=== PATIENT | female | born 2000 | race Caucasian/White ===

== ENCOUNTER 2024-07-18 18:38 | Emergency (ER) | payer OTHER, SELFPAY ==
[2024-07-18 18:39] VITALS: BP 130/76; PULSE 89; RESP 16; TEMP 36.6; O2SAT 97; BMI 36.3
--- NOTE | 2024-07-18 19:15 | ED_ITS ---
Discharge Plan Disposition Patient Disposition: Home, Self-Care Condition: Good Prescriptions Prescriptions: New phenazopyridine [Pyridium] 200 mg tablet 200 mg PO Q8H 2 Days Qty: 6 0RF ondansetron 4 mg Tablet,Disintegrating 4 mg PO Q8H PRN (Reason: Nausea) Qty: 12 0RF nitrofurantoin monohyd/m-cryst [Macrobid] 100 mg Capsule 100 mg PO BID Qty: 10 0RF Rx Instructions: must administer with a meal/food Referrals Follow up/Referrals: Provider,Referral, MD [Primary Care Provider] - See instructions Activity Restrictions/Add. Instructions Additional Instructions/Restrictions: Drink plenty of fluids. Take tylenol or ibuprofen for pain or fever. Take the medications as directed. Follow up with your regular doctor. GO TO THE ER FOR ANY WORSENING SYMPTOMS The pyridium will make your urine turn orange, this is an expected side effect. It will stain your clothes if it comes into contact with them. We will culture the urine. That will tell what bacteria is causing your infection and which antibiotics will treat it best.This test takes 3 days to complete. Clinical Impressions Clinical Impression: UTI (urinary tract infection) Instructions Patient Instructions: Urinary Tract Infection, Urine Culture, DI for Urinary Tract Infection (UTI), Phenazopyridine, Nitrofurantoin Print Language Print Language: Belarusian Discharge ED Provider: Pierce Templeton [facility] [place] HPI General Stated complaint: Fever,burning,painful urination Time Seen by Provider: 07/18/24 19:14 Related Data Previous Rx's ?Medication ?Instructions ?Recorded nitrofurantoin 100 mg PO BID #10 caps 07/18/24 monohydrate/macrocrystals 100 mg capsule (Macrobid) ondansetron 4 mg disintegrating 4 mg PO Q8H PRN Nausea #12 tabs 07/18/24 tablet phenazopyridine 200 mg tablet 200 mg PO Q8H 2 days #6 tabs 07/18/24 (Pyridium) Allergies Allergy/AdvReac Type Severity Reaction Status Date / Time No Known Allergies Allergy Verified 07/18/24 19:17 [facility] Disclaimer: The information contained in this section may have been updated after the patient was seen, as this information can be updated by other users. Social History Smoking Status: Never smoker alcohol intake: never current occupational status: employed Travel in the last 8 weeks: None ROS Obtained: Yes All systems reviewed & no additional complaints except as documented Constitutional Constitutional: Reports system reviewed and no additional complaints, except as documented, Denies chills and Denies fever(s) Eyes Eyes: Denies eye discharge ENT Ears, Nose, Mouth, and Throat: Denies dysphagia, Denies sore throat and Denies throat swelling Cardiovascular Cardiovascular: Denies chest pain and Denies dyspnea Respiratory Respiratory: Denies chest congestion, Denies cough and Denies dyspnea Gastrointestinal Gastrointestingal: Denies abdominal pain, constipation, diarrhea, dysphagia, nausea or vomiting Genitourinary Female Genitourinary: Reports as per HPI, Reports dysuria, Reports urinary frequency, Denies urinary incontinence, Reports urinary hesitancy and Reports urinary urgency Musculoskeletal Musculoskeletal: Denies arthralgias and Reports back pain Integumentary/Breasts Skin/Breast: Denies rash Neurologic Neurologic: Denies paresthesias Allergic/Immunologic Allergic/Immunologic: Denies throat swelling Physical Exam General General appearance: alert and in no apparent distress Head Head exam: atraumatic and normocephalic Eye Eye exam: Present normal appearance, PERRL and EOMI ENT ENT exam: Present normal exam, mucous membranes moist, TM's normal bilaterally and normal external ear exam Neck Neck exam: Present normal inspection, full ROM and trachea midline; Absent tenderness, meningismus or lymphadenopathy Chest Chest inspection: Present normal inspection and symmetric chest wall rise; Absent tenderness Respiratory Respiratory exam: Present normal lung sounds bilaterally; Absent respiratory distress, wheezes or stridor Cardiovascular Cardiovascular exam: Present regular rate, normal rhythm and normal heart sounds Abdominal Exam Abdominal exam: Present soft and normal bowel sounds; Absent distention, tenderness, guarding, rebound, rigidity, incision, psoas sign, obturator sign, heel tap sign, Espinosa's sign, Rovsing's sign or tenderness at McBurney's Point Extremities Exam Extremities exam: Present normal inspection, full ROM and normal capillary refill; Absent tenderness, edema, joint swelling, calf tenderness or cyanosis Back Exam Back exam: Present normal inspection and full ROM; Absent tenderness, CVA tenderness (R) or CVA tenderness (L) Neurological Exam Neurological exam: Present alert, oriented X3 and normal gait Psychiatric Psychiatric exam: Present normal affect and normal mood Skin Skin exam: Present warm, dry, intact and normal color Lymphatic Lymphatic Findings: no adenopathy Medical Decision Making Medical Records Medical records reviewed: No I reviewed the patient's medical records. Screening: Per USPSTF and CDC recommendations, given the prevalence of disease in our region, it is our hospital?s policy to screen for HIV and viral Hepatitis for all patients aged 18 and over and those with ongoing risk factors. Yossi Inquiry Pt receiving controlled substance: No Lab Data Lab results reviewed: Yes I reviewed the patient's lab results.
[2024-07-18 19:19] LABS: Microscopic, Urine URINE MICROSCOPIC (MICROSCOPIC)
[2024-07-18 19:21] LABS: UTC Pregnancy Test, Urine Negative (Negative)
[2024-07-18 19:23] LABS: Appearance,Urine CLEAR (Clear); Bilirubin,Urine Negative (Negative); Blood, Urine TRACE-I (Negative); Color,Urine YELLOW (Yellow); Glucose,Urine (UA) Negative (Negative); Ketones,Urine Negative (Negative); Leukocyte Esterase,Urine 1+ (Negative); Nitrate,Urine Negative (Negative); Protein,Urine Negative (Negative); Urobilinogen,Urine 0.2 EU/dl (0.2)
[2024-07-18 19:35] VITALS: BP 130/76; PULSE 89; RESP 18; TEMP 36.6; O2SAT 97
[2024-07-18 19:36] LABS: Bacteria,Urine 3+ /lpf; Mucus,Urine 1+ /lpf; WBC,Urine 50-100 #/hpf (0-3)
--- NOTE | 2024-07-22 13:28 | PC.NURSE ---
PATIENT'S URINE CULTURE REVIEWED BY Jovani CASTILLO APRN. PATIENT SENT IN KEFLEX. PATIENT NOTIFIED AT THIS TIME TO STOP CURRENT ANTIBIOTIC AND START KEFLEX. PATIENT ADVISED TO FOLLOW-UP WITH PCP IF SYMPTOMS PERSIST. PATIENT VERBALIZED UNDERSTANDING.
--- NOTE | 2024-07-22 13:30 | PC.NURSE ---
SPOKE WITH PATIENT ABOUT WOUND CULTURE RESULTS. ADVISED PATIENT CLINDAMYCIN WAS SENT IN AND SHE SHOULD STOP BOTH CURRENT ORAL ANTIBIOTICS AND START CLINDAMYCIN. ADVISED PATIENT TO CONTINUE USING MUPRIOCIN OINTMENT AND FOLLOW-UP WITH PCP. PATIENT VERBALIZED UNDERSTANDING
== END 2024-07-18 19:37 | disposition home or self-care (01) ==
PROVIDERS: Emergency Provider Nurse Practitioner Family
DX: N39.0 Urinary tract infection, site not specified (principal); R30.9 Painful micturition, unspecified; R50.9 Fever, unspecified
CPT/HCPCS: 81001; 81025; 87086; 87088; 87186; 99212; G0381

== ENCOUNTER 2024-08-06 09:16 | Emergency (ER) | payer OTHER, SELFPAY ==
[2024-08-06 10:31] VITALS: BP 123/78; PULSE 76; RESP 18; TEMP 36.9; O2SAT 98; BMI 36.1
--- NOTE | 2024-08-06 10:34 | EXP.UTC ---
Discharge Plan Disposition Patient Disposition: Home, Self-Care Condition: Good Prescriptions Prescriptions: New ibuprofen [IBU] 800 mg tablet 800 mg PO Q8HP PRN (Reason: Moderate Pain) Qty: 30 0RF Referrals Follow up/Referrals: Milad Clements DO [Primary Care Provider] - See instructions Activity Restrictions/Add. Instructions Additional Instructions/Restrictions: Go home and rest. It would be best if you rested tomorrow too. Take the oral medications as directed. Follow up with your regular doctor. GO TO THE ER FOR ANY WORSENING SYMPTOMS OR CONCERN Clinical Impressions Clinical Impression: Headache, migraine Stand Alone Forms Stand Alone Forms: Work/School Release Instructions Patient Instructions: Migraine -- Adult, Ketorolac Injection, Dexamethasone Injection Print Language Print Language: Korean Discharge ED Provider: Pierce Templeton [facility] General Stated complaint: knot back of head, migraine Mode of Arrival: Ambulatory Source of Information: Patient Time Seen by Provider: 08/06/24 10:34 Description of Symptoms (Recalled from Triage Doc. by RN): LEFT BACK OF HEAD MUSCLE KNOT? STATES PAIN AND CAUSING MIGRAINES HEENT Symptoms (Recalled from RN notes): Yes Resp Symptoms (Recalled from RN notes): No Skin Symptoms (Recalled from RN notes): No MS Symptoms (Recalled from RN notes): Yes Functional Status (Recalled from RN notes): WNL Related Data Previous Rx's ?Medication ?Instructions ?Recorded ibuprofen 800 mg tablet (IBU) 800 mg PO Q8HP PRN Moderate Pain 08/06/24 #30 tabs Allergies Allergy/AdvReac Type Severity Reaction Status Date / Time No Known Allergies Allergy Verified 07/18/24 19:17 Worker's Comp Is this a Worker's Comp case?: No [facility] Disclaimer: The information contained in this section may have been updated after the patient was seen, as this information can be updated by other users. Social History (Updated 07/19/24 @ 08:26 by Pierce Templeton APRN) Smoking Status: Never smoker alcohol intake: never current occupational status: employed Travel in the last 8 weeks: None ROS Obtained: Yes All systems reviewed & no additional complaints except as documented Constitutional Constitutional: Denies chills and Denies fever(s) Eyes Eyes: Denies eye discharge ENT Ears, Nose, Mouth, and Throat: Denies dizziness, Denies otalgia and Denies sore throat Cardiovascular Cardiovascular: Denies chest pain Respiratory Respiratory: Denies shortness of breath, Denies chest congestion, Denies cough, Denies stridor and Denies wheezing Gastrointestinal Gastrointestingal: Denies nausea or vomiting Musculoskeletal Musculoskeletal: Reports system reviewed and no additional complaints, except as documented and Denies arthralgias Integumentary/Breasts Skin/Breast: Denies rash Neurologic Neurologic: Denies dizziness and Denies paresthesias Allergic/Immunologic Allergic/Immunologic: Denies wheezing Physical Exam General General appearance: alert and in no apparent distress Head Head exam: atraumatic, normocephalic and normal inspection Eye Eye exam: Present normal appearance, PERRL and EOMI ENT ENT exam: Present normal exam, normal oropharynx, mucous membranes moist, TM's normal bilaterally and normal external ear exam Neck Neck exam: Present normal inspection, full ROM and trachea midline; Absent meningismus or lymphadenopathy Chest Chest inspection: Present normal inspection and symmetric chest wall rise; Absent tenderness Respiratory Respiratory exam: Present normal lung sounds bilaterally; Absent respiratory distress Cardiovascular Cardiovascular exam: Present regular rate and normal rhythm; Absent JVD Abdominal Exam Abdominal exam: Present soft and normal bowel sounds; Absent distention, tenderness or guarding Extremities Exam Extremities exam: Present normal inspection, full ROM and normal capillary refill; Absent calf tenderness Back Exam Back exam: Present normal inspection; Absent tenderness Neurological Exam Neurological exam: Present alert and oriented X3 Psychiatric Psychiatric exam: Present normal affect and normal mood Skin Skin exam: Present warm, dry, intact and normal color Lymphatic Lymphatic Findings: no adenopathy Medical Decision Making Medical Records Medical records reviewed: No I reviewed the patient's medical records. Screening: Per USPSTF and CDC recommendations, given the prevalence of disease in our region, it is our hospital?s policy to screen for HIV and viral Hepatitis for all patients aged 18 and over and those with ongoing risk factors. Yossi Inquiry Pt receiving controlled substance: No Vital Signs: 08/06/24 10:31 Temperature 98.4 F Temperature Source Oral Pulse Rate [Left Radial] 76 Respiratory Rate 18 Blood Pressure [Left Arm] 123/78 Blood Pressure Mean [Left Arm] 93 02 Sat by Pulse Oximetry 98
[2024-08-06] MEDS: DEXAMETHASONE 4MG/ML 1ML VIAL 8 MG IM (10:48)
[2024-08-06] MEDS: KETOROLAC 60MG/2ML VIAL 60 MG IM (10:48)
[2024-08-06 11:36] VITALS: BP 123/78; PULSE 76; RESP 18; TEMP 36.9
== END 2024-08-06 11:38 | disposition home or self-care (01) ==
PROVIDERS: Emergency Provider Nurse Practitioner Family; PCP Internal Medicine
DX: G43.909 Migraine, unspecified, not intractable, without status migrainosus (principal)
CPT/HCPCS: 96372; 99213; G0381; J1100; J1885

== ENCOUNTER 2024-08-09 17:11 | Emergency (ER) | payer OTHER, SELFPAY ==
[2024-08-09 17:12] VITALS: BP 145/74; PULSE 69; RESP 20; TEMP 36.8; O2SAT 97; BMI 35.9
[2024-08-09] MEDS: LIDOCAINE 5% TRANSDERMAL PATCH 1 EACH TP (17:37)
[2024-08-09] MEDS: ONDANSETRON 4MG ODT 4 MG SL (17:37)
--- NOTE | 2024-08-09 17:42 | HMH.EDGENADL ---
Discharge Plan Prescriptions Prescriptions: New lidocaine 5 % adhesive patch,medicated 1 patch topical DAILY Qty: 30 0RF Rx Instructions: leave on most painful area for up to 12 hrs ondansetron 4 mg tablet,disintegrating 4 mg PO Q6H PRN (Reason: nausea and vomiting) Qty: 10 0RF No Action ibuprofen [IBU] 800 mg tablet 800 mg PO Q8HP PRN (Reason: Moderate Pain) Qty: 30 0RF Referrals Follow up/Referrals: Milad Clements DO [Primary Care Provider] - See instructions Activity Restrictions/Add. Instructions Additional Instructions/Restrictions: Call your family doctor to establish care for this visit to the emergency department and schedule follow-up within 48 hours to ensure improvement. If you have any worsening of your condition or any other concerning signs or symptoms, return to the emergency department or your primary care doctor for further evaluation. Lidocaine patch once daily. Clinical Impressions Clinical Impression: Muscle tightness Instructions Patient Instructions: DI for Neck Pain Print Language Print Language: Occitan Discharge ED Provider: Kingsley Hatfield General Adult HPI General Chief complaint: Neck Pain/Injury Stated complaint: knot on neck,tingling LT side face to feet Time Seen by Provider: 08/09/24 17:17 Mode of Arrival: Ambulatory Source of Information: Patient Limitations: No Limitations Description of Symptoms (Recalled from ER Triage Doc. by RN): pt is here for pain in neck muscle back of head that has been going on for two years, pt was given a muscle relaxer on monday and has been having intermittent nausea since then History of Present Illness HPI narrative: Please note that above description of symptoms, in this electronic medical record under categorization of recalled from ER triage doctor by RN are reflective of an initial nursing assessment, however, is not reflective of my full history and physical exam that was personally taken and clarified. Consequentially, this preceding description of symptoms, which may include the patient's categorized chief complaint in the EMR, do not reflect my personal clinical impression, and the ultimate description of history of present illness and patient stated complaints should be deferred to this section of the note. Unless stated otherwise or congruent with this section of the note, additional signs, symptoms, or incongruence should be interpreted as inaccurate with my clinical impression. Related Data Previous Rx's ?Medication ?Instructions ?Recorded ibuprofen 800 mg tablet (IBU) 800 mg PO Q8HP PRN Moderate Pain 08/06/24 #30 tabs lidocaine 5 % topical patch 1 patch topical DAILY #30 ea 08/09/24 ondansetron 4 mg disintegrating 4 mg PO Q6H PRN nausea and 08/09/24 tablet vomiting #10 tabs Allergies Allergy/AdvReac Type Severity Reaction Status Date / Time No Known Allergies Allergy Verified 07/18/24 19:17 [facility] Disclaimer: The information contained in this section may have been updated after the patient was seen, as this information can be updated by other users. Social History (Updated 07/19/24 @ 08:26 by Pierce Templeton APRN) Smoking Status: Never smoker alcohol intake: never current occupational status: employed Travel in the last 8 weeks: None ROS Obtained: Yes All systems reviewed & no additional complaints except as documented Physical Exam General General appearance: alert Head Head exam: atraumatic and normocephalic Eye Eye exam: Present normal appearance, PERRL and EOMI Neck Neck exam: Present normal inspection, full ROM and trachea midline Respiratory Respiratory exam: Absent respiratory distress, wheezes, stridor, accessory muscle use or prolonged expiratory phase Cardiovascular Cardiovascular exam: Present other (Pulses equal symmetric in upper and lower extremities) Abdominal Exam Abdominal exam: Present soft; Absent distention, tenderness or pulsatile mass Extremities Exam Extremities exam: Absent edema Neurological Exam Neurological exam: Present alert, oriented X3 and CN II-XII intact; Absent motor sensory deficit Skin Skin exam: Present warm and dry; Absent diaphoresis or erythema Medical Decision Making Medical Records Medical records reviewed: Yes I reviewed the patient's medical records. Screening: Per USPSTF and CDC recommendations, given the prevalence of disease in our region, it is our hospital?s policy to screen for HIV and viral Hepatitis for all patients aged 18 and over and those with ongoing risk factors. Yossi Inquiry Pt receiving controlled substance: No Yossi was queried for this patient: No Vital Signs: 08/09/24 17:12 Temperature 98.2 F Temperature Source Oral Pulse Rate [Right Radial] 69 Respiratory Rate 20 Blood Pressure [Right Arm] 145/74 H Blood Pressure Mean [Right Arm] 97 02 Sat by Pulse Oximetry 97 Oxygen Delivery Method Room Air Orders (Tests/Meds): ED MEDICATIONS Discontinued Medications Generic Name Dose Route Start Last Admin Trade Name Freq PRN Reason Stop Dose Admin Lidocaine 1 each 08/09/24 17:25 08/09/24 17:37 Lidocaine 5% Transdermal Patch TP 08/09/24 17:26 1 each ONCE ONE Administration Ondansetron HCl 4 mg 08/09/24 17:35 08/09/24 17:37 Ondansetron 4mg Odt SL 08/09/24 17:36 4 mg ONCE ONE Administration Medical Decision Narrative: 24-year-old female presenting with concern for knot on the back of her neck as well as intermittent dizziness and nausea. Patient states that she has had a knot, on the back of her neck at the base of her skull for the past few months. Has not seen her family doctor for this. Does not have 1 in [place], has not followed up in [place], where her family doctor is based. States that did not has not gotten any worse, but went to the urgent care couple days prior to this. Was prescribed a muscle relaxer. Since that time, has been intermittently dizzy and nauseated throughout the day. No vomiting. States there is no chance of , adamantly denying and declining exam. No other neurologic deficits or acute complaints. Patient is currently asymptomatic in the emergency department. History obtained the patient. On arrival, patient well-appearing. knot on the back of her head is actually insertion point of trapezius at the base of the occiput. No mass, symmetric to the other side, no obvious muscular knot or tightness. Full range of motion of the neck. No bruits, no JVD, neurologically intact including cranial nerve, motor, sensory, cerebellar. Lidocaine patch to be applied. Labs were considered, patient has no systemic signs or symptoms other than subjective nausea which is not currently present and is intermittent throughout the day. Not deemed necessary at this time. hCG was considered, but patient declined. CT scan of the head and neck was considered given subjective symptoms, but patient is having no neurologic deficits, no objective findings on exam and fully intact exam making CT scan unlikely to show any acute abnormality. Lidocaine patch applied and Zofran given. Deemed appropriate for outpatient management. Regarding social determinants of health, patient was supplied with PCPs here in the area. Because patient at baseline without signs or symptoms of clinical decompensation, deemed appropriate for discharge. I discussed my clinical impression with patient and answered all questions. At this time, the evidence for any other entities in the differential is insufficient to warrant any further testing or ED observation. This was explained as well. Advisory was given that persistent or worsening symptoms require further evaluation. I confirmed the understanding of this discussion. Carpenter Assistant Installer disclaimer Much of this encounter note is an electronic oracle analyst spoken language to printed text. Electronic oracle analyst of the spoken language may permit errors. Although I have reviewed the note, some errors may still exist. Critical Care Critical Care Time Critical Care Time: No
[2024-08-09 17:50] VITALS: BP 125/80; PULSE 73; RESP 18; TEMP 36.8; O2SAT 96
== END 2024-08-09 17:51 | disposition home or self-care (01) ==
PROVIDERS: Emergency Provider Emergency Medicine; PCP Internal Medicine
DX: M54.2 Cervicalgia (principal)
CPT/HCPCS: 99283; Q0162

== ENCOUNTER 2024-08-21 01:47 | Emergency (ER) | payer OTHER, SELFPAY ==
[2024-08-21 01:49] VITALS: BP 158/101; PULSE 106; RESP 18; TEMP 36.9; O2SAT 99; BMI 32.3
[2024-08-21 02:01] VITALS: BP 119/103; PULSE 91; O2SAT 95
[2024-08-21] MEDS: 0.9 % SODIUM CHLORIDE 1000ML 1,000 ML 999 ML IV (02:01)
[2024-08-21] MEDS: ONDANSETRON 4MG/2ML VIAL 4 MG IV (02:01)
[2024-08-21] MEDS: ACETAMINOPHEN 1,000MG/100ML VIAL 1000 MG IV (02:02)
[2024-08-21 02:09] LABS: Microscopic, Urine URINE MICROSCOPIC (MICROSCOPIC)
--- NOTE | 2024-08-21 02:10 | HMH.EDGENADL ---
Discharge Plan Disposition Patient Disposition: Home, Self-Care Prescriptions Prescriptions: New ondansetron HCl 4 mg tablet 4 mg PO Q8H PRN (Reason: nausea and vomiting) 5 Days Qty: 30 0RF sulfamethoxazole-trimethoprim 800-160 mg tablet 1 tab PO BID 7 Days Qty: 14 0RF No Action ibuprofen [IBU] 800 mg tablet 800 mg PO Q8HP PRN (Reason: Moderate Pain) Qty: 30 0RF lidocaine 5 % adhesive patch,medicated 1 patch topical DAILY Qty: 30 0RF Rx Instructions: leave on most painful area for up to 12 hrs ondansetron 4 mg tablet,disintegrating 4 mg PO Q6H PRN (Reason: nausea and vomiting) Qty: 10 0RF Referrals Follow up/Referrals: Milad Clements DO [Primary Care Provider] - See instructions Activity Restrictions/Add. Instructions Additional Instructions/Restrictions: Please take antibiotics as prescribed for treatment of kidney infection. Please follow-up with your primary care provider. Please return to the emergency department if you develop any new or worsening symptoms or become concerned for your health. Clinical Impressions Clinical Impression: Pyelonephritis Instructions Patient Instructions: DI for Diarrhea and Traveler's Diarrhea -- Adult, DI for Diarrhea and Traveler's Diarrhea -- Child, DI for Nausea -- Adult, DI for Nausea -- Child Print Language Print Language: Vincentian Discharge ED Provider: Car Estrada Adult HPI General Chief complaint: Nausea/Vomiting/Diarrhea Stated complaint: R side pain, vomiting, ryan when urinating Time Seen by Provider: 08/21/24 01:50 Mode of Arrival: Ambulatory Source of Information: Patient Limitations: No Limitations Description of Symptoms (Recalled from ER Triage Doc. by RN): 24 F presents from home with c/o bilateral flank pain, dysuria, and subjective fevers that started 2 days ago. Patient is having nausea with vomiting on arrival. History of Present Illness HPI narrative: 24-year-old female without significant past medical history presents for burning with urination, bilateral flank pain, subjective fevers for the last couple of days. Patient reports that she has been vomiting heavily lately as well. She denies history of pyelonephritis in the past. She is not sure if she is . Related Data Previous Rx's ?Medication ?Instructions ?Recorded ibuprofen 800 mg tablet (IBU) 800 mg PO Q8HP PRN Moderate Pain 08/06/24 #30 tabs lidocaine 5 % topical patch 1 patch topical DAILY #30 ea 08/09/24 ondansetron 4 mg disintegrating 4 mg PO Q6H PRN nausea and 08/09/24 tablet vomiting #10 tabs ondansetron HCl 4 mg tablet 4 mg PO Q8H PRN nausea and 08/21/24 vomiting 5 days #30 tabs sulfamethoxazole 800 1 tab PO BID 7 days #14 tabs 08/21/24 mg-trimethoprim 160 mg tablet Allergies Allergy/AdvReac Type Severity Reaction Status Date / Time No Known Allergies Allergy Verified 07/18/24 19:17 [facility] Disclaimer: The information contained in this section may have been updated after the patient was seen, as this information can be updated by other users. Social History (Updated 07/19/24 @ 08:26 by Pierce Templeton APRN) Smoking Status: Never smoker alcohol intake: never current occupational status: employed ROS Obtained: Yes All systems reviewed & no additional complaints except as documented Physical Exam General General appearance: alert Comment: Uncomfortable appearing Head Head exam: atraumatic and normocephalic Eye Eye exam: Present normal appearance, PERRL and EOMI ENT ENT exam: Present normal oropharynx and normal external ear exam Neck Neck exam: Present normal inspection and full ROM Chest Chest inspection: Present normal inspection and symmetric chest wall rise; Absent tenderness Respiratory Respiratory exam: Present normal lung sounds bilaterally; Absent respiratory distress Cardiovascular Cardiovascular exam: Present normal rhythm and tachycardia Abdominal Exam Abdominal exam: Present soft; Absent distention, tenderness or guarding Extremities Exam Extremities exam: Present normal inspection; Absent edema or joint swelling Back Exam Back exam: Present normal inspection, CVA tenderness (R) and CVA tenderness (L) Neurological Exam Neurological exam: Present alert and oriented X3; Absent motor sensory deficit Psychiatric Psychiatric exam: Present normal affect and normal mood Skin Skin exam: Present warm, dry and normal color Lymphatic Lymphatic Findings: no adenopathy Medical Decision Making Medical Records Medical records reviewed: Yes I reviewed the patient's medical records. Screening: Per USPSTF and CDC recommendations, given the prevalence of disease in our region, it is our hospital?s policy to screen for HIV and viral Hepatitis for all patients aged 18 and over and those with ongoing risk factors. Yossi Inquiry Pt receiving controlled substance: No Yossi was queried for this patient: No Vital Signs: 08/21/24 01:49 Temperature 98.4 F Temperature Source Oral Pulse Rate [Left] 106 H Respiratory Rate 18 Blood Pressure [Right Arm] 158/101 H Blood Pressure Mean [Right Arm] 120 Blood Pressure Source [Right Arm] Automatic Cuff Blood Pressure Position [Right Arm] Sitting 02 Sat by Pulse Oximetry 99 Oxygen Delivery Method Room Air Lab Data Lab results reviewed: Yes I reviewed the patient's lab results. Lab Results 08/21/24 01:57: Urine Color Yellow, Urine Appearance Clear, Urine pH 6.5, Ur Specific Kim 1.020, Urine Protein 1+ A, Urine Glucose (UA) Negative, Urine Ketones Negative, Urine Blood 2+ A, Urine Nitrate Negative, Urine Bilirubin Negative, Urine Urobilinogen 0.2, Ur Leukocyte Esterase 1+ A, Urine RBC 3-5, Urine WBC 3-5, Ur Squamous Epith Cells 3-5, Urine Bacteria Trace 08/21/24 02:00: WBC 11.3 H, RBC 4.97, Hgb 14.3, Hct 43.3, MCV 87.2, MCH 28.8, MCHC 33.0, RDW 14.0, Plt Count 367, MPV 7.0 L, Neut % (Auto) 68.6, Lymph % (Auto) 23.9, Dickens % (Auto) 4.9, Eos % (Auto) 1.4, Baso % (Auto) 1.1, Neut # (Auto) 7.7, Lymph # (Auto) 2.7, Dickens # (Auto) 0.6, Eos # (Auto) 0.2, Baso # (Auto) 0.1, Sodium 140, Potassium 3.8, Chloride 106, Carbon Dioxide 25, Anion Gap 12.8, BUN 10, Creatinine 0.80, Estimated Creat Clear 154, Estimated GFR 87, Est GFR ( Amer) 106, Glucose 97, Calcium 9.1, Magnesium 2.2, Total Bilirubin 0.7, AST 35, ALT 33, Alkaline Phosphatase 92, Total Protein 7.5, Albumin 4.6, Globulin 2.9, Albumin/Globulin Ratio 1.6, Lipase 69, Serum HCG, Qual Negative 08/21/24 02:00 08/21/24 02:00 Orders (Tests/Meds): ED MEDICATIONS Generic Name Dose Route Start Last Admin Trade Name Freq PRN Reason Stop Dose Admin Sodium Chloride 1,000 mls @ 999 mls/hr 08/21/24 02:00 08/21/24 02:01 Sod Chlor 0.9% 1000ml Bag IV 08/21/24 03:00 999 mls/hr .Q1H1M SEB Administration Ceftriaxone Sodium 1 gm/ 50 mls @ 100 mls/hr 08/21/24 02:40 08/21/24 02:42 Sodium Chloride IV 08/21/24 03:09 100 mls/hr ONCE ONE Administration Trimethoprim/Sulfamethoxazole 1 each 08/21/24 02:40 08/21/24 02:42 Sulfa/Trimethoprim 1 Tablet PO 08/21/24 02:41 1 each ONCE ONE Administration Discontinued Medications Generic Name Dose Route Start Last Admin Trade Name Shobha PRN Reason Stop Dose Admin Acetaminophen 1,000 mg 08/21/24 01:55 08/21/24 02:02 Acetaminophen 500mg Tab PO 08/21/24 01:56 Not Given ONCE ONE Acetaminophen 1,000 mg 08/21/24 02:01 08/21/24 02:02 Acetaminophen 1,000mg/100ml Vial IV 08/21/24 02:02 1,000 mg ONCE ONE Administration Ondansetron HCl 4 mg 08/21/24 01:55 08/21/24 02:01 Ondansetron 4mg/2ml Vial IV 08/21/24 01:56 4 mg ONCE ONE Administration ORDERS Category Date Time Status POCUS Point of Care (ER Only) Stat Exams 08/21/24 02:40 Ordered CBC w/Auto Diff [Complete Blood Count Auto Diff] Stat Lab 08/21/24 02:00 Completed CMP [Comprehensive Metabolic Panel] Stat Lab 08/21/24 02:00 Completed HCG Qualitative, Serum Stat Lab 08/21/24 02:00 Completed HIV (1&2) Antibody Rapid Stat Lab 08/21/24 02:00 Received Hep C Ab with Reflex to RNA Stat Lab 08/21/24 02:00 Received Lipase Stat Lab 08/21/24 02:00 Completed Magnesium Stat Lab 08/21/24 02:00 Completed UA [Urinalysis and Microscopic] Stat Lab 08/21/24 01:57 Completed Blood Culture Stat Micro 08/21/24 01:56 Received Urine Culture Stat Micro 08/21/24 01:56 Received Medical Decision Narrative: 24-year-old female without significant past medical history presents with 2 days of subjective fevers, dysuria, now with bilateral flank pain. History was obtained via interactive discussion with patient. On arrival, patient is [afebrile, hemodynamically stable, mildly tachycardic, satting appropriately, alert, oriented x4, GCS 15], moving all extremities spontaneously. Full physical exam performed and significant for bilateral CVA tenderness Differential includes but is not limited to pyelonephritis, UTI, gastroenteritis, , dehydration, electrolyte derangement. Patient was given 1 L IV fluid bolus, 4 mg IV Zofran, IV Tylenol for symptomatic management and correction of underlying abnormalities. Workup initiated including CBC CMP GC chlamydia, blood culture urine urine culture lipase mag. Bedside ultrasound was performed by me and showed no evidence of hydronephrosis. On re-evaluation, patient [remains afebrile, HD stable.] No longer vomiting, reports improvement in nausea and pain. Laboratory workup independently interpreted by me and significant for urinalysis consistent with UTI, mild leukocytosis, normal renal function, negative test.. Admission for pyelonephritis was considered, but deemed unnecessary due to history and exam. CT scan for stone was considered but deemed unnecessary given no evidence of hydro on ultrasound, no history of stones.. Given patient history, exam and workup, patient's presentation most likely represents pyelonephritis. These findings were communicated to patient and she was discharged in stable condition after receiving IV ceftriaxone and Bactrim. Discharged with prescription for Bactrim. Return precautions. Procedures Risk/Benefits of Procedure(s) Were Explained: Yes Limited Ultrasound Indication:: Limited renal ultrasound Indication: A focused ultrasound of the kidneys was performed to evaluate for hydronephrosis and nephrolithiasis. The ultrasound was performed with the following indications, as noted in the H&P: Flank pain bilaterally Identified structures: Bilateral kidneys Findings: Bilateral kidneys show no evidence of hydronephrosis or intrarenal calculi Impression: Normal limited renal ultrasound without evidence of hydronephrosis or calculi Images were saved to permanent archive The study was technically adequate CPT: 91737-37 This study was performed by fl, and I personally interpreted all images/videos. Critical Care Critical Care Time Critical Care Time: No
[2024-08-21 02:11] LABS: Basophils # 0.1 K/mm3 (0-0.2); Basophils % 1.1 % (0.1-2.0); Eosinophils # 0.2 K/mm3 (0.0-0.4); Eosinophils % 1.4 % (0.1-12.0); Hematocrit 43.3 % (37.0-47.0); Hemoglobin 14.3 g/dL (12.2-16.2); Lymphocytes # 2.7 K/mm3 (0.7-4.5); Lymphocytes % 23.9 % (10-50); Mean Corpuscular Hemoglobin 28.8 pg (27.0-31.2); Mean Corpuscular Volume 87.2 fl (81-99); Monocytes # 0.6 K/mm3 (0.1-1.0); Monocytes % 4.9 % (1.7-9.3); Neutrophils # 7.7 K/mm3 (1.8-7.8); Neutrophils % 68.6 % (37.0-80.0); Platelet Count 367 K/mm3 (142-424); Red Blood Count 4.97 M/mm3 (4.20-5.40); White Blood Count 11.3 K/mm3 (4.8-10.8)
[2024-08-21 02:13] LABS: Appearance,Urine CLEAR (Clear); Bilirubin,Urine Negative (Negative); Blood, Urine 2+ (Negative); Color,Urine YELLOW (Yellow); Glucose,Urine (UA) Negative (Negative); Ketones,Urine Negative (Negative); Leukocyte Esterase,Urine 1+ (Negative); Nitrate,Urine Negative (Negative); PH,Urine 6.5 (5.0-8.5); Protein,Urine 1+ (Negative); Urobilinogen,Urine 0.2 EU/dl (0.2)
[2024-08-21 02:14] LABS: Albumin Level 4.6 g/dl (3.5-5.0); Chloride 106 mmol/L (98-107); Potassium 3.8 mmoL/L (3.5-5.1); Sodium 140 mmol/L (136-145)
[2024-08-21 02:16] LABS: Blood Urea Nitrogen 10 mg/dl (7-17); Creatinine Clearance Estimated 154 mL/min (50-200); Estimated Glomerular Filt Rate 87 ml/min (>60); GFR (African American) 106 ML/MIN (>60)
[2024-08-21 02:17] LABS: Alanine Aminotransferase 33 U/L (12-78); Albumin/Globulin Ratio 1.6 (1.1-1.8); Alkaline Phosphatase 92 U/L (38-126); Anion Gap 12.8 mEq/L (5-15); Aspartate Amino Transferase 35 U/L (14-36); Bilirubin,Total 0.7 mg/dl (0.2-1.3); Calcium 9.1 mg/dl (8.4-10.2); Carbon Dioxide 25 mmol/L (22.0-30.0); Globulin 2.9 g/dL (1.3-3.2); Glucose 97 mg/dl (74-100); Lipase 69 U/L (23-300); Total Protein,Serum 7.5 g/dl (6.3-8.2)
[2024-08-21 02:18] LABS: Magnesium 2.2 mg/dl (1.6-2.3)
[2024-08-21 02:25] LABS: Bacteria,Urine Trace /lpf
[2024-08-21 02:28] LABS: HCG Qualitative, Serum Negative (Negative)
[2024-08-21] MEDS: CEFTRIAXONE 1 GM 1 GM in 0.9 % SODIUM CHLORIDE 50 ML IV (02:42)
[2024-08-21] MEDS: SULFA/TRIMETHOPRIM 1 TABLET 1 EACH PO (02:42)
[2024-08-21 02:47] LABS: HIV (1&2) Antibody Rapid NONREACTIVE (NONREACTIVE)
[2024-08-21 02:50] VITALS: BP 134/92; PULSE 94; RESP 20; TEMP 36.9; O2SAT 96
[2024-08-22 06:15] LABS: HCV Ab Non Reactive (Non Reactive)
--- NOTE | 2024-08-22 16:27 | PC.NURSE ---
discussed urine culture with , pt dc with bactrim, ntd
[2024-08-24 03:36] LABS: Neisseria gonorrhoeae, NAA Negative (Negative)
== END 2024-08-21 03:01 | disposition home or self-care (01) ==
PROVIDERS: Emergency Provider Emergency Medicine; PCP Internal Medicine
DX: N12 Tubulo-interstitial nephritis, not specified as acute or chronic (principal); R10.30 Lower abdominal pain, unspecified; R30.0 Dysuria; R50.9 Fever, unspecified; R11.2 Nausea with vomiting, unspecified; R30.9 Painful micturition, unspecified
CPT/HCPCS: 80053; 81001; 83690; 83735; 84703; 85025; 86803; 87040; 87086; 87088; 87186; 87389; 87491; 87591; 96361; 96365; 96374; 96375; 99284; J0131; J0696; J2405; J7030

== ENCOUNTER 2024-08-27 12:03 | Emergency (ER) | payer OTHER, SELFPAY ==
[2024-08-27 12:19] VITALS: BP 116/66; PULSE 84; RESP 20; TEMP 36.9; O2SAT 98; BMI 36.3
--- NOTE | 2024-08-27 12:30 | EXP.UTC ---
Discharge Plan Disposition Patient Disposition: Home, Self-Care Condition: Good Prescriptions Prescriptions: New sulfamethoxazole-trimethoprim [Bactrim DS] 800-160 mg tablet 1 tab PO BID 3 Days Qty: 6 0RF phenazopyridine [Pyridium] 200 mg tablet 200 mg PO Q8H 2 Days Qty: 6 0RF No Action sulfamethoxazole-trimethoprim 800-160 mg tablet 1 tab PO BID 7 Days Qty: 14 0RF Referrals Follow up/Referrals: Provider,Referral, MD [Primary Care Provider] - See instructions Activity Restrictions/Add. Instructions Additional Instructions/Restrictions: *Increase fluids. Water not Soda or Tea *Start antibiotic immediately and be sure to take as ordered for the FULL length of time although you should start to see improvement over the next 48 hours *Pyridium as needed Remember this medication will turn your urine . This is normal but it will stain what ever it gets on *You should not use Pyridium for more than 48 hours. If so , follow up with your primary physician to review urine culture and ensure that antibiotic is adequate for infection *Be SURE to follow up anytime for new or worsening symptoms with your family doctor. AND in 48 hours for urine culture results with your family doctor, if you do not have a doctor then you may call back to the [facility] for urine culture results and further treatment. We do recommend that you choose and establish care with a Primary Care Physician. ?AND follow up with them ?in 10-14 days to repeat UA to ensure infection is resolved and blood no longer present *Be sure to let your PCP know that we sent urine cultures from the [facility] so they can follow up to ensure that you area the on the correct antibiotic Call your doctor office and make appointment for 48 hours (2 days from today) ?to follow up and get the results of your urine culture and further treatment Clinical Impressions Clinical Impression: UTI symptoms Instructions Patient Instructions: DI for Dysuria -- Adult Print Language Print Language: Swedish Discharge ED Provider: Kingsley Hatfield [facility] – [place], [place] HPI General Stated complaint: fever, possibly UTI Mode of Arrival: Ambulatory Source of Information: Patient Time Seen by Provider: 08/27/24 12:30 Description of Symptoms (Recalled from Triage Doc. by RN): FOLLOW UP FOR KIDNEY INFECTION., SEEN AND TREATED IN ER ON MONDAY, STATES SHE WILL FINISH ABX TODAY AND DOES NOT FEEL BETTER, C/O BACK PAIN WELL HEENT Symptoms (Recalled from RN notes): No Resp Symptoms (Recalled from RN notes): No Skin Symptoms (Recalled from RN notes): No MS Symptoms (Recalled from RN notes): No Functional Status (Recalled from RN notes): WNL Related Data Previous Rx's ?Medication ?Instructions ?Recorded sulfamethoxazole 800 1 tab PO BID 7 days #14 tabs 08/21/24 mg-trimethoprim 160 mg tablet phenazopyridine 200 mg tablet 200 mg PO Q8H pain 2 days #6 tabs 08/27/24 (Pyridium) sulfamethoxazole 800 1 tab PO BID 3 days #6 tabs 08/27/24 mg-trimethoprim 160 mg tablet (Bactrim DS) Allergies Allergy/AdvReac Type Severity Reaction Status Date / Time No Known Allergies Allergy Verified 07/18/24 19:17 Worker's Comp Is this a Worker's Comp case?: No [facility] Disclaimer: The information contained in this section may have been updated after the patient was seen, as this information can be updated by other users. Social History (Updated 07/19/24 @ 08:26 by Pierce Templeton APRN) Smoking Status: Never smoker alcohol intake: never current occupational status: employed Travel in the last 8 weeks: None ROS Obtained: Yes All systems reviewed & no additional complaints except as documented and Yes Systems reviewed as appropriate & no additional complaints except as documented Constitutional Constitutional: Reports system reviewed and no additional complaints, except as documented and Reports as per HPI ENT Ears, Nose, Mouth, and Throat: Reports system reviewed and no additional complaints, except as documented and Reports as per HPI Cardiovascular Cardiovascular: Reports system reviewed and no additional complaints, except as documented and Reports as per HPI Respiratory Respiratory: Reports system reviewed and no additional complaints, except as documented and Reports as per HPI Gastrointestinal Gastrointestingal: Reports system reviewed and no additional complaints, except as documented and as per HPI Genitourinary Female Genitourinary: Reports system reviewed and no additional complaints, except as documented, Reports as per HPI and Reports dysuria (at times) Physical Exam General General appearance: alert and in no apparent distress ENT ENT exam: Present normal exam, normal oropharynx, mucous membranes moist and TM's normal bilaterally Respiratory Respiratory exam: Present normal lung sounds bilaterally; Absent respiratory distress or wheezes Cardiovascular Cardiovascular exam: Present regular rate, normal rhythm and normal heart sounds Abdominal Exam Abdominal exam: Present soft and normal bowel sounds; Absent distention or tenderness Back Exam Back exam: Present normal inspection and full ROM; Absent tenderness, CVA tenderness (R) or CVA tenderness (L) Neurological Exam Neurological exam: Present alert, oriented X3 and normal gait Medical Decision Making Medical Records Screening: Per USPSTF and CDC recommendations, given the prevalence of disease in our region, it is our hospital?s policy to screen for HIV and viral Hepatitis for all patients aged 18 and over and those with ongoing risk factors. Yossi Inquiry Pt receiving controlled substance: No Yossi was queried for this patient: No Vital Signs: 08/27/24 12:19 Temperature 98.5 F Temperature Source Oral Pulse Rate [Left Radial] 84 Respiratory Rate 20 Blood Pressure [Left Arm] 116/66 Blood Pressure Mean [Left Arm] 82 02 Sat by Pulse Oximetry 98 Lab Data Lab results reviewed: Yes I reviewed the patient's lab results. Medical Decision Narrative: discussed lab findings of UA with patient patient reports took her last dose of antibiotic today, urine much improved, will prescribed 3 more days of medication and if she is still having symptoms recommended follow up with PCP to recheck urine medication is susceptible to infection per the culture result
[2024-08-27 12:49] LABS: Apearance,Urine Clear (Clear); Bilirubin,Urine Negative (Negative); Blood, Urine Negative (Negative); Color,Urine Yellow (Yellow); Glucose,Urine (UA) Negative (Negative); Ketones,Urine Negative (Negative); Protein,Urine Negative (Negative); UTC Leukocyte Esterase,Urine Negative (Negative); UTC Nitrate,Urine Negative (Negative); Urobilinogen,Urine 0.2 EU/dl (0.2)
[2024-08-27 12:57] VITALS: BP 116/66; PULSE 84; RESP 20; TEMP 36.9
== END 2024-08-27 12:58 | disposition home or self-care (01) ==
LOC: ER 12:06 → UTC 12:07
PROVIDERS: Emergency Provider Nurse Practitioner
DX: N39.0 Urinary tract infection, site not specified (principal); R50.9 Fever, unspecified; M54.9 Dorsalgia, unspecified
CPT/HCPCS: 81003; 87086; 99212; G0381

== ENCOUNTER 2024-10-09 16:16 | Outpatient (CLI) | payer OTHER, SELFPAY ==
[2024-10-09 16:25] LABS: Microscopic, Urine URINE MICROSCOPIC (MICROSCOPIC)
[2024-10-09 17:02] LABS: Appearance,Urine CLEAR (Clear); Bilirubin,Urine Negative (Negative); Blood, Urine Negative (Negative); Color,Urine YELLOW (Yellow); Glucose,Urine (UA) Negative (Negative); Ketones,Urine Negative (Negative); Leukocyte Esterase,Urine Negative (Negative); Nitrate,Urine Negative (Negative); Protein,Urine Negative (Negative); Specific Gravity, Urine 1.025 (1.005-1.030); Urobilinogen,Urine 0.2 EU/dl (0.2)
[2024-10-09 17:30] LABS: Bacteria,Urine 2+ /lpf; Mucus,Urine 2+ /lpf; RBC,Urine Occasional #/hpf (0-3); WBC,Urine Occasional #/hpf (0-3)
== END 2024-10-09 23:59 | disposition home or self-care (01) ==
LOC: LAB 16:19
PROVIDERS: Visit Provider Student in an Organized Health Care Education/Training Program
DX: N39.0 Urinary tract infection, site not specified (principal); R30.0 Dysuria
CPT/HCPCS: 36415; 81001; 87086

== ENCOUNTER 2024-12-24 16:22 | Outpatient (CLI) | payer OTHER, SELFPAY | END 2024-12-24 23:59 | disposition home or self-care (01) | LOC: LAB.DROPOF 16:22 | PROVIDERS: PCP Student in an Organized Health Care Education/Training Program; Visit Provider Student in an Organized Health Care Education/Training Program | DX: R30.0 Dysuria (principal); R39.9 Unspecified symptoms and signs involving the genitourinary system | CPT/HCPCS: 87086 ==

== ENCOUNTER 2025-01-07 18:15 | Outpatient (CLI) | payer OTHER, SELFPAY ==
[2025-01-08 18:18] LABS: Chlamydia trachomatis Negative (Negative); Neisseria gonorrhoeae Negative (Negative); Trichomonas vaginalis Negative (Negative)
== END 2025-01-07 23:59 | disposition home or self-care (01) ==
LOC: LAB.DROPOF 01-08 12:43
PROVIDERS: PCP Student in an Organized Health Care Education/Training Program; Visit Provider Student in an Organized Health Care Education/Training Program
DX: R30.0 Dysuria (principal); N39.0 Urinary tract infection, site not specified
CPT/HCPCS: 87086; 87491; 87591; 87661